=== PATIENT | female | born 1990 | race Caucasian/White ===

== ENCOUNTER 2019-08-19 09:20 | Outpatient (CLI) | payer MEDICAID, OTHER ==
[2019-08-19 12:23] LABS: BASOPHILS # (AUTO) 0.1 10^3/uL (0.0-0.1); BASOPHILS % (AUTO) 0.7 %; EOSINOPHILS # (AUTO) 0.2 10^3/uL (0.0-0.7); EOSINOPHILS % (AUTO) 2.9 %; HGB - HEMOGLOBIN 13.9 g/dL (12.0-16.0); MEAN CORPUSCULAR HGB CONC 31.5 g/dL (32.0-36.0); MEAN CORPUSCULAR VOLUME 88.9 fL (81.0-99.0); MEAN PLATELET VOLUME 10.6 fL (7.9-10.8); MONOCYTES # (AUTO) 0.6 10^3/uL (0.0-1.0); MONOCYTES % (AUTO) 7.4 %; NEUTROPHILS # (AUTO) 4.8 10^3/uL (1.5-6.6); NEUTROPHILS % (AUTO) 62.6 %; PLT - PLATELET COUNT 196 10^3/uL (130-450); RED BLOOD COUNT 4.96 10^6/uL (4.20-5.40); RED CELL DISTRIBUTION WIDTH 13.1 % (12.0-15.0); WHITE BLOOD COUNT 7.7 x10^3/uL (4.8-10.8)
[2019-08-19 12:41] LABS: HB2 TOTAL 14.2 g/dL; HEMOGLOBIN A1C 0.53 g/dL; HEMOGLOBIN A1C % 5.6 % (4.6-6.2)
[2019-08-19 12:48] LABS: ALBUMIN/GLOBULIN RATIO 1.1 (1.0-2.2); ALKALINE PHOSPHATASE 59 IU/L (42-121); ALT ALANINE AMINOTRANSFERASE 39 IU/L (10-60); AST ASPARTATE AMINOTRANSFERASE 24 IU/L (10-42); BILIRUBIN,TOTAL 0.6 mg/dL (0.2-1.0); BUN - BLOOD UREA NITROGEN 12 mg/dL (6-20); CARBON DIOXIDE - CO2 26 mmol/L (21-32); CHLORIDE 103 mmol/L (101-111); CHOL/HDL RATIO 4.3 (<4.4); CHOLESTEROL 204 mg/dL; CREATININE 0.8 mg/dL (0.4-1.0); GLUCOSE 119 mg/dL (70-100); HDL CHOLESTEROL 48 mg/dL; LDL CHOLESTEROL,CALCULATED 129 mg/dL; LDL/HDL RATIO 2.7 (<4.4); SODIUM 135 mmol/L (135-145); TOTAL PROTEIN 7.5 g/dL (6.7-8.2); VLDL CHOLESTEROL 27 mg/dL
== END 2019-08-19 23:59 | disposition home or self-care (01) ==
LOC: LAB.N 09:20
PROVIDERS: ATTEND Family Medicine
DX: Z00.00 Encounter for general adult medical examination without abnormal findings (principal)
CPT/HCPCS: 36415; 80053; 80061; 83036; 83721; 84443; 85025

== ENCOUNTER 2019-10-08 12:05 | Outpatient (CLI) | payer OTHER ==
[2019-10-08 14:17] LABS: FOLLICLE STIMULATING HORMONE 6.1 mIU/mL
[2019-10-08 14:18] LABS: LUTEINIZING HORMONE 5.4 mIU/mL
== END 2019-10-08 23:59 | disposition home or self-care (01) ==
LOC: LAB.WCP 12:05
PROVIDERS: ATTEND Obstetrics & Gynecology
DX: N97.0 Female infertility associated with anovulation (principal)
CPT/HCPCS: 36415; 83001; 83002

== ENCOUNTER 2019-11-09 14:37 | Outpatient (CLI) | payer OTHER ==
--- NOTE | 2019-11-09 17:17 | Ultrasound Report ---
Reason: OBESITY, ANOVULATION, MENSTRUAL DISORDER Procedure Date: 11/09/2019 Accession Number: [id number] / [id number] Procedure: US - Pelvic w/Transvaginal CPT Code: Final Report FULL RESULT: PROCEDURE: Pelvic w/Transvaginal INDICATIONS: OBESITY, ANOVULATION, MENSTRUAL DISORDER TECHNIQUE: Real-time scanning was performed of the pelvic organs, with image documentation. Additional endovaginal scanning was necessary due to incomplete visualization of the adnexal and endometrial structures by transabdominal scanning. COMPARISON: None. FINDINGS: Suboptimal evaluation secondary to patient body habitus. Transabdominal scanning: Limited scanning through the kidneys shows no hydronephrosis. No pathologic free abdominal or pelvic fluid. Endovaginal scanning: Uterus: Uterus is normal in size at 7.3 x 3.6 x 4.6 cm. The endometrium measures 5 mm in combined thickness. Nabothian cysts are noted. Ovaries: Right ovary measures 26 x 16 x 19 mm. Less than 12 follicles are noted. By measures 4.2 cc. Left ovary measures 25 x 15 x 14 mm. It is suboptimally evaluated. Volume measures 2.7 cc. IMPRESSION: 1. Suboptimal evaluation as above. 2. No gross uterine or ovarian abnormality. Reviewed by: Yola Samson MD on 11/09/2019 5:16 PM PDT Approved by: Yola Samson MD on 11/09/2019 5:16 PM PDT Station ID: [id number]
== END 2019-11-09 14:38 | disposition home or self-care (01) ==
LOC: DI 14:37
PROVIDERS: ATTEND Family Medicine
DX: N88.8 Other specified noninflammatory disorders of cervix uteri (principal); N97.0 Female infertility associated with anovulation; N92.6 Irregular menstruation, unspecified; E66.9 Obesity, unspecified
CPT/HCPCS: 76830; 76856

== ENCOUNTER 2019-12-28 13:41 | Outpatient (CLI) | payer OTHER | END 2019-12-28 13:42 | disposition home or self-care (01) | LOC: NS 13:41 | PROVIDERS: ATTEND Family Medicine | DX: Z71.3 Dietary counseling and surveillance (principal); E66.01 Morbid (severe) obesity due to excess calories; Z68.35 Body mass index [BMI] 35.0-35.9, adult | CPT/HCPCS: 97802 ==

== ENCOUNTER 2019-12-29 05:45 | Emergency (ER) | payer OTHER ==
--- NOTE | 2019-12-29 05:51 | ED Physician Documentation ---
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 c/o sudden onset severe LUE pain, worse with movement. Review of Systems Skin: denies: Abrasion (s), Laceration (s) Musculoskeletal: reports: Extremity pain. denies: Neck pain, Back pain, Joint pain Neurologic: denies: Focal weakness, Numbness, Head injury, LOC PD PAST MEDICAL HISTORY - Past Medical History Past Medical History: No - Past Surgical History Past Surgical History: Yes HEENT: Tonsil/Adenoidectomy - Present Medications Home Medications: Ambulatory Orders Medication Instructions Recorded Confirmed Diazepam [Valium] 5 mg PO Q8H PRN #15 tablet 01/31/13 Ibuprofen [Motrin] 600 mg PO Q6H #30 tab 01/31/13 predniSONE [Deltasone] 40 mg PO DAILY 4 Days tablet 01/31/13 Oxycodone HCl/Acetaminophen 1 - 2 each PO Q6H PRN #14 tablet 12/29/19 [Percocet 5-325 mg Tablet] - Allergies Allergies/Adverse Reactions: Allergies Allergy/AdvReac Type Severity Reaction Status Date / Time No Known Drug Allergies Allergy Verified 12/29/19 05:55 - Social History Does the pt smoke?: Yes Smoking Status: Current every day smoker Does the pt drink ETOH?: Yes Does the pt have substance abuse?: No - Immunizations Immunizations are current?: Yes - POLST Patient has POLST: No PD ED PE NORMAL - Vitals Vital signs reviewed: Yes - General General: Alert and oriented X 3, No acute distress (NAD at rest, obvious painful distress with any movement of LUE), Well developed/nourished - Neck Neck: No bony TTP - Derm Derm: Normal color, Warm and dry - Extremities Extremities: No deformity - Neuro Neuro: Alert and oriented X 3, No motor deficit, No sensory deficit PD ED PE EXPANDED - Extremities Extremities: Tenderness (LUE mid-shaft humerus), Limited ROM (left shoulder, elbow), Sensory intact (LTS intact LUE), Vascular intact (brisk capillary refill in hand, fingers (LUE) with strong radial pulse) Results - Vitals Vitals: Vital Signs - 24 hr 12/29/19 05:53 Temperature 36.1 C L Heart Rate 98 Respiratory 19 Rate Blood Pressure 98/55 L O2 Saturation 100 Oxygen O2 Source Room air - Rads (name of study) left humerus xrays Radiology: Prelim report reviewed, See rad report Procedures - Splint (location) Upper extremity left Splint applied by: Tech Type of splint: Sugar tong Other: Patient tolerated well, No complications, Neurovascular intact, Good alignment, Sling provided PD MEDICAL DECISION MAKING - ED course Complexity details: reviewed results, re-evaluated patient, considered differential, d/w patient ED course: d/w Dr. Mims (automation technologist orthopedics), recommends sugar-tong splint and f/u outpatient. follow up information provided to patient in discharge sheets. Departure - Departure Disposition: 01 Home, Self Care Clinical Impression: Humerus fracture Qualifiers: Encounter type: initial encounter Humerus Location: shaft Fracture type: closed Fracture morphology: comminuted Fracture alignment: displaced Laterality: left Qualified Code(s): S42.352A - Displaced comminuted fracture of shaft of humerus, left arm, initial encounter for closed fracture Condition: Good Instructions: ED Fx Upper Ext, ED Sling, ED Splint Care Fiberglass Follow-Up: Vipul Mims MD [Provider Admit Priv/Credential] - Within 3 Days (Call this morning to arrange for next available follow up ) Prescriptions: Oxycodone HCl/Acetaminophen [Percocet 5-325 mg Tablet] 1 - 2 each PO Q6H PRN #14 tablet PRN Reason: pain Discharge Date/Time: 12/29/19 08:51
[2019-12-29 05:55] VITALS: BP 98/55
[2019-12-29] MEDS ORDERED: HYDROcod/ACETAM 5/325 MG TABLET PO STA (06:03)
--- NOTE | 2019-12-29 08:13 | XRAY Report ---
PROCEDURE: Humerus LT INDICATIONS: fall, pain TECHNIQUE: 2 views of the humerus were acquired. COMPARISON: None FINDINGS: Bones: Comminuted fracture of the distal left humeral diaphysis. Soft tissues: No suspicious soft tissue calcifications. IMPRESSION: Comminuted distal left humerus fracture. Reviewed by: Gayle Pardo MD, PhD on 12/29/2019 8:12 AM PDT Approved by: Gayle Pardo MD, PhD on 12/29/2019 8:12 AM PDT Station ID: [id number]
== END 2019-12-29 08:51 | disposition home or self-care (01) ==
LOC: ED 05:45
DX: S42.352A Displaced comminuted fracture of shaft of humerus, left arm, initial encounter for closed fracture (principal); W01.198A Fall on same level from slipping, tripping and stumbling with subsequent striking against other object, initial encounter; Y93.01 Activity, walking, marching and hiking; Y92.000 Kitchen of unspecified non-institutional (private) residence as the place of occurrence of the external cause; F17.200 Nicotine dependence, unspecified, uncomplicated
CPT/HCPCS: 29105; 73060; 99283; 99284; A9270

== ENCOUNTER 2019-12-31 10:49 | Emergency (ER) | payer OTHER ==
[2019-12-31 10:57] VITALS: BP 147/101
--- NOTE | 2019-12-31 11:22 | ED Physician Documentation ---
PD HPI UPPER EXT INJURY - Stated complaint Stated Complaint: LT ARM PX - Chief complaint Chief Complaint: Ext Problem - History obtained from History obtained from: Patient - History of Present Illness Location: Left, Arm, Elbow Type of injury: Other (She had recent fracture of distal humerus. Splint and sling in place. She says she has significantly worse pain during night into this morning. No numbness, swelling, nor weakness at hand. Had not adjusted splint nor sling. 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 : None HEENT: None Psych: None Musculoskeletal: None Derm: None - Past Surgical History Past Surgical History: Yes HEENT: Tonsil/Adenoidectomy - Present Medications Home Medications: Ambulatory Orders Medication Instructions Recorded Confirmed Diazepam [Valium] 5 mg PO Q8H PRN #15 tablet 01/31/13 Ibuprofen [Motrin] 600 mg PO Q6H #30 tab 01/31/13 predniSONE [Deltasone] 40 mg PO DAILY 4 Days tablet 01/31/13 Oxycodone HCl/Acetaminophen 1 - 2 each PO Q6H PRN #14 tablet 12/29/19 [Percocet 5-325 mg Tablet] methocarbamoL [Robaxin] 500 mg PO Q6H PRN #30 tablet 12/31/19 - Allergies Allergies/Adverse Reactions: Allergies Allergy/AdvReac Type Severity Reaction Status Date / Time No Known Drug Allergies Allergy Verified 12/29/19 05:55 - Social History Does the pt smoke?: No Smoking Status: Never smoker Does the pt drink ETOH?: Yes Does the pt have substance abuse?: No - Immunizations Immunizations are current?: Yes - POLST Patient has POLST: No PD ED PE NORMAL - Vitals Vital signs reviewed: Yes - General General: Alert and oriented X 3, Well developed/nourished, Other (seems in pain due to left arm fracture. Spling and sling in place. No edema in fingers. Normal color and sensation, movement of fingers. ) Results - Vitals Vitals: Vital Signs - 24 hr 12/31/19 10:53 Temperature 37.1 C Heart Rate 127 H Respiratory 18 Rate Blood Pressure 147/101 H O2 Saturation 100 Oxygen O2 Source Room air - Rads (name of study) left humerus Radiology: Prelim report reviewed (still with same fracture, slightly improved position of fracture. ), See rad report PD MEDICAL DECISION MAKING - ED course Complexity details: reviewed results (position of fracture slightly improved from prior. ), re-evaluated patient (She is feeling better with sling repositioned. Does not feel that the splint is rubbing. No signs of compartment issues in forearm/hand. ), considered differential (having pain at recent fracture area. 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 ), d/w patient Departure - Departure Disposition: 01 Home, Self Care Clinical Impression: Humeral distal fracture Qualifiers: Encounter type: subsequent encounter Fracture type: closed Fracture morphology: unspecified fracture morphology Laterality: left Fracture healing: with routine healing Qualified Code(s): S42.402D - Unspecified fracture of lower end of left humerus, subsequent encounter for fracture with routine healing Condition: Stable Record reviewed to determine appropriate education?: Yes Instructions: ED Fx Elbow Prescriptions: methocarbamoL [Robaxin] 500 mg PO Q6H PRN #30 tablet PRN Reason: Spasms Comments: Continue your anti-inflammatory and you can add Robaxin muscle relaxant if needed for spasms. Continue the pain medicine as needed. Keep wearing the sling and splint and adjust as needed the position of the sling. Follow-up with orthopedics as planned next week. Your x-ray shows similar alignment and position of the fracture and perhaps just slightly better aligned so you seem in good position. Forms: Activity restrictions Discharge Date/Time: 12/31/19 12:25
[2019-12-31] MEDS ORDERED: methocarbamoL 500 MG TABLET PO STA (11:32)
--- NOTE | 2019-12-31 12:13 | XRAY Report ---
PROCEDURE: Humerus LT INDICATIONS: recent fracture; she feels it moved/changed TECHNIQUE: 4 views of the humerus were acquired. COMPARISON: 12/29/2019 FINDINGS: Bones: Again noted is a comminuted oblique fracture involving distal humeral shaft with slight anteri or and lateral displacement at fracture site. Overall humeral alignment have slightly improved since previous study. No new fracture or dislocation is seen. No increased displacement is noted at fractur e site. No suspicious bony lesions. Soft tissues: No suspicious soft tissue calcifications. IMPRESSION: Reduced comminuted and slightly displaced oblique fracture involving distal humeral shaft with overal l alignment improved since previous study. No new fracture or dislocation. Reviewed by: Zach Valadez MD on 12/31/2019 12:11 PM PDT Approved by: Zach Valadez MD on 12/31/2019 12:11 PM PDT Station ID: [id number]
== END 2019-12-31 12:25 | disposition home or self-care (01) ==
LOC: ED 10:49
DX: S42.402D Unspecified fracture of lower end of left humerus, subsequent encounter for fracture with routine healing (principal)
CPT/HCPCS: 73060; 99283; A9270

== ENCOUNTER 2020-02-04 07:39 | Outpatient (CLI) | payer OTHER ==
--- NOTE | 2020-02-04 15:13 | XRAY Report ---
PROCEDURE: Humerus LT INDICATIONS: COMMINUTED FRACTURE OF LEFT HUMERUS TECHNIQUE: 2 views of the humerus were acquired. COMPARISON: 01/07/2020, 12/29/2019. FINDINGS: Bones: There is a mildly comminuted fracture of the distal humeral shaft redemonstrated. Mild persist ent lateral displacement and medial angulation of the dominant distal component is redemonstrated wit h suggestion of slightly increased angulation. There is increased callus formation but the fracture l tatiana remain visible. Soft tissues: No suspicious soft tissue calcifications. IMPRESSION: 1. Healing mildly comminuted fracture of the distal humeral shaft redemonstrated with suggestion of i ncreased angulation. Reviewed by: Vernon Person MD on 02/04/2020 3:12 PM PDT Approved by: Vernon Person MD on 02/04/2020 3:12 PM PDT Station ID: [id number]
== END 2020-02-04 07:40 | disposition home or self-care (01) ==
LOC: DI.WCP 07:39
PROVIDERS: ATTEND Orthopaedic Surgery
DX: S42.352A Displaced comminuted fracture of shaft of humerus, left arm, initial encounter for closed fracture (principal)

== ENCOUNTER 2020-03-03 07:42 | Outpatient (CLI) | payer OTHER ==
--- NOTE | 2020-03-03 14:20 | XRAY Report ---
PROCEDURE: Humerus LT INDICATIONS: LEFT HUMERUS FRACTURE TECHNIQUE: 2 views of the humerus were acquired. COMPARISON: 02/04/2020. FINDINGS: Grossly unchanged alignment of distal humeral fracture with increasing callus formation. Soft tissues: No suspicious soft tissue calcifications. IMPRESSION: Unchanged alignment of distal humeral fracture with increasing healing sclerosis Reviewed by: Sesar Harper MD on 03/03/2020 2:19 PM PDT Approved by: Sesar Harper MD on 03/03/2020 2:19 PM PDT Station ID: [id number]
== END 2020-03-03 07:43 | disposition home or self-care (01) ==
LOC: DI.WCP 07:42
PROVIDERS: ATTEND Orthopaedic Surgery
DX: S42.352A Displaced comminuted fracture of shaft of humerus, left arm, initial encounter for closed fracture (principal)

== ENCOUNTER 2021-08-07 11:21 | Outpatient (CLI) | payer OTHER ==
[2021-08-07 18:19] LABS: BASOPHILS # (AUTO) 0.1 10^3/uL (0.0-0.1); EOSINOPHILS # (AUTO) 0.4 10^3/uL (0.0-0.7); EOSINOPHILS % (AUTO) 4.1 %; HCT - HEMATOCRIT 45.6 % (37.0-47.0); HGB - HEMOGLOBIN 14.3 g/dL (12.0-16.0); LYMPHOCYTES # (AUTO) 2.3 10^3/uL (1.5-3.5); LYMPHOCYTES % (AUTO) 25.1 %; MEAN CORPUSCULAR HEMOGLOBIN 27.2 pg (27.0-31.0); MEAN CORPUSCULAR HGB CONC 31.4 g/dL (32.0-36.0); MEAN CORPUSCULAR VOLUME 86.7 fL (81.0-99.0); MEAN PLATELET VOLUME 11.1 fL (7.9-10.8); MONOCYTES # (AUTO) 0.6 10^3/uL (0.0-1.0); MONOCYTES % (AUTO) 6.7 %; NEUTROPHILS # (AUTO) 5.7 10^3/uL (1.5-6.6); NEUTROPHILS % (AUTO) 62.7 %; PLT - PLATELET COUNT 243 10^3/uL (130-450); RED BLOOD COUNT 5.26 10^6/uL (4.20-5.40); RED CELL DISTRIBUTION WIDTH 13.2 % (12.0-15.0); WHITE BLOOD COUNT 9.2 x10^3/uL (4.8-10.8)
[2021-08-07 18:21] LABS: ALBUMIN 4.2 g/dL (3.2-5.5); ALBUMIN/GLOBULIN RATIO 1.2 (1.0-2.2); ALKALINE PHOSPHATASE 71 IU/L (42-121); ALT ALANINE AMINOTRANSFERASE 26 IU/L (10-60); AST ASPARTATE AMINOTRANSFERASE 20 IU/L (10-42); BILIRUBIN,TOTAL 0.5 mg/dL (0.2-1.0); BUN - BLOOD UREA NITROGEN 10 mg/dL (6-20); CALCIUM 9.4 mg/dL (8.5-10.3); CARBON DIOXIDE - CO2 25 mmol/L (21-32); CHLORIDE 103 mmol/L (101-111); CHOL/HDL RATIO 3.8 (<4.4); CHOLESTEROL 192 mg/dL; CREATININE 0.7 mg/dL (0.4-1.0); GFR - MDRD 96 (>89); GLUCOSE 107 mg/dL (70-100); HDL CHOLESTEROL 51 mg/dL; LDL CHOLESTEROL,CALCULATED 128 mg/dL; LDL/HDL RATIO 2.5 (<4.4); POTASSIUM 4.1 mmol/L (3.5-5.0); SODIUM 140 mmol/L (135-145); TOTAL PROTEIN 7.7 g/dL (6.7-8.2); TRIGLYCERIDES 64 mg/dL; VLDL CHOLESTEROL 13 mg/dL
[2021-08-07 18:29] LABS: THYROID STIMULATING HORMONE 1.09 uIU/mL (0.34-5.60)
== END 2021-08-07 11:22 | disposition home or self-care (01) ==
LOC: LAB.N 11:21
PROVIDERS: ATTEND Physician Assistant Medical
DX: Z00.00 Encounter for general adult medical examination without abnormal findings (principal); L29.9 Pruritus, unspecified
CPT/HCPCS: 36415; 80053; 80061; 81599; 83721; 84443; 85025; 86003

== ENCOUNTER 2022-03-29 13:39 | Outpatient (CLI) | payer OTHER ==
[2022-03-29 18:29] LABS: THYROID STIMULATING HORMONE 0.97 uIU/mL (0.34-5.60)
== END 2022-03-29 13:40 | disposition home or self-care (01) ==
LOC: LAB.N 13:39
PROVIDERS: ATTEND Physician Assistant
DX: R63.5 Abnormal weight gain (principal)
CPT/HCPCS: 36415; 84443